=== PATIENT | female | born 1955 | race Caucasian/White ===

== ENCOUNTER 2024-01-30 07:03 | Emergency (ER) | payer OTHER ==
[2024-01-30] MEDS ORDERED: TDAP (DIPHTH,PERTUSS(ACELL),TET VAC) 0.5 ML VIAL IMVAC ONE (07:38)
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
[2024-01-30 08:17] VITALS: TEMP 97.9; O2SAT 99
[2024-01-30 08:19] VITALS: BP 130/84
== END 2024-01-30 08:11 | disposition home or self-care (01) ==
LOC: ER 07:03
DX: T21.21XA Burn of second degree of chest wall, initial encounter (principal); T20.27XA Burn of second degree of neck, initial encounter
CPT/HCPCS: 96372; 99284

== ENCOUNTER 2024-02-13 20:05 | Emergency (ER) | payer OTHER ==
[2024-02-13 20:53] LABS: Absolute Eosinophils 0.1 K/uL (0-0.5); Absolute Lymphocytes (CBC) 1.1 K/uL (0.7-4.9); Absolute Monocytes 0.7 K/uL (0.1-1.3); Absolute Neutrophil 4.4 K/uL (1.8-8.0); Basophils % 0.4 % (0-1.3); Hematocrit 35.5 % (36.0-45.0); Hemoglobin 11.6 g/dL (12.0-15.0); Lymphocytes % 17.8 % (15.3-44.8); MCH 32.3 pg (27.0-35.0); MCHC 32.6 g/dL (32.0-36.0); MPV 9.1 fL (7.6-11.3); Monocytes % 11.3 % (3.3-12.3); Neutrophils % 69.5 % (41.7-73.7); Platelets 246 thou/uL (152-406); RBC Red Blood Cell Count 3.59 M/uL (3.86-4.86); Red Cell Distribution Width 13.5 % (12.1-15.2)
[2024-02-13] MEDS ORDERED: VANCOMYCIN 1 GM/VIAL ONE (21:05)
[2024-02-13] MEDS ORDERED: NA CHLORIDE 0.9% 250 ML ONE (21:05)
[2024-02-13 21:13] LABS: Albumin 2.5 g/dL (3.4-5.0); Albumin/Globulin Ratio 0.6 (1.1-1.8); Anion Gap 7.9 mEq/L (5.0-15.0); Bilirubin Total 0.2 mg/dL (0.2-1.0); Potassium 3.9 mEq/L (3.5-5.1); Protein, Total 6.5 g/dL (6.4-8.2)
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
[2024-02-13 22:47] VITALS: TEMP 97.9
[2024-02-13 22:50] VITALS: BP 101/59; O2SAT 97
== END 2024-02-13 22:32 | disposition home or self-care (01) ==
LOC: ER 20:05
DX: T21.21XD Burn of second degree of chest wall, subsequent encounter (principal); L03.313 Cellulitis of chest wall; L08.9 Local infection of the skin and subcutaneous tissue, unspecified; T31.0 Burns involving less than 10% of body surface
CPT/HCPCS: 96365; 87070; 85025; 36415; 87205; 87077; 87186; 80053; 99284; J7050